=== PATIENT | male | born 1960 | race African-American/Black ===

== ENCOUNTER 2020-06-17 21:42 | Emergency (ER) | payer OTHER ==
[~2020-06-17 21:42] MED LIST: BACLOFEN 10MG T10 MG PO; FIORICET1 EACH PO; FLEXERIL10 MG PO; NORCO 5-325 TA1 EACH PO; PERCOCET 7.5/321 TAB PO; VOLTAREN **OUT75 MG PO; ZESTRIL5 MG PO
[2020-06-17] MEDS ORDERED: PERCOCET 5-3251 EACH PO (23:28)
[2020-08-26] MEDS ORDERED: PERCOCET 5-3251 EACH PO (09:08)
== END 2020-06-17 23:50 | disposition home or self-care (01) ==
LOC: FER 21:42
DX: S43.422A Sprain of left rotator cuff capsule, initial encounter (principal); I10 Essential (primary) hypertension; F17.200 Nicotine dependence, unspecified, uncomplicated; X58.XXXA Exposure to other specified factors, initial encounter; Y92.009 Unspecified place in unspecified non-institutional (private) residence as the place of occurrence of the external cause
CPT/HCPCS: 73030; 96372; J1040; J1885

== ENCOUNTER → 2020-08-26 | Day surgery (SDC) | payer OTHER ==
[~2020-08-26] VITALS: Ht 182.9 cm; Wt 86.2 kg
[~2020-08-26] MED LIST changes: +PERCOCET 5-3251 EACH PO
[2020-08-26 08:07] LABS: HCT 41.3 % (42.0-52.0); HGB 13.6 g/dl (13.2-18.0); MCH 29.2 pg (25.0-31.0); MCHC 32.9 g/dL (32.0-36.0); MCV 88.6 fL (78.0-100.0); RBC 4.66 M/uL (4.70-6.00); RDW 14.9 % (11.5-14.0); WBC 8.9 K/uL (4.0-10.5)
[2020-08-26 08:25] LABS: ALBUMIN 3.7 g/dL (3.4-5.0); BILIRUBIN - TOTAL 0.3 mg/dL (0.2-1.0); CREATININE 0.93 mg/dL (0.67-1.17); GLOBULIN (CALCULATION) 3.7 g/dL; POTASSIUM 4.1 mmol/L (3.5-5.1); TOTAL PROTEIN 7.4 g/dL (6.4-8.2)
== END | disposition home or self-care (01) ==
LOC: FAS 07:10
PROVIDERS: Orthopaedic Surgery
DX: M75.112 Incomplete rotator cuff tear or rupture of left shoulder, not specified as traumatic (principal); M75.42 Impingement syndrome of left shoulder; M75.52 Bursitis of left shoulder; S46.212A Strain of muscle, fascia and tendon of other parts of biceps, left arm, initial encounter; M19.012 Primary osteoarthritis, left shoulder; M25.812 Other specified joint disorders, left shoulder
CPT/HCPCS: 36415; 71045; 80053; 93005; J0171; J0690; J0735; J1100; J1885; J2250; J2405; J2704; J2795; J3490; J7120